=== PATIENT | female | born 1990 | race Caucasian/White ===

== ENCOUNTER 2020-05-15 14:10 | Emergency (ER) | payer OTHER ==
[~2020-05-15 14:10] MED LIST: AMOXICILLIN500 MG PO; ONDANSETRON ODT4 MG SL; SUDAFED30 MG PO; ZPAK PO
== END 2020-05-15 16:20 | disposition left against medical advice (07) ==
LOC: FER 14:10
DX: S31.154A Open bite of abdominal wall, left lower quadrant without penetration into peritoneal cavity, initial encounter (principal); F17.200 Nicotine dependence, unspecified, uncomplicated; W54.0XXA Bitten by dog, initial encounter; Y92.009 Unspecified place in unspecified non-institutional (private) residence as the place of occurrence of the external cause; Z53.8 Procedure and treatment not carried out for other reasons
CPT/HCPCS: 90471; 99283

== ENCOUNTER 2021-12-02 11:55 | Emergency (ER) | payer OTHER ==
[2021-12-02 12:51] LABS: BASOPHIL 0.8 % (0-2); BILIRUBIN NEGATIVE (NEGATIVE); BLOOD NEGATIVE Ery/uL (NEGATIVE); CLARITY CLEAR (CLEAR); COLOR YELLOW (YELLOW); EOSINOPHIL 1.6 % (0-5); GLUCOSE (U) NORMAL (NORMAL); HCT 40.3 % (37.0-47.0); LEUKOCYTES 1+ Leu/uL (NEGATIVE); LYMPHOCYTE 27.9 % (15-48); MCHC 34.7 g/dL (32.0-36.0); MCV 86.5 fL (78.0-100.0); MONOCYTE 5.9 % (0-12); MPV 10.3 fL (6.0-9.5); NEUTROPHIL 63.2 % (41-80); NITRITE NEGATIVE (NEGATIVE); NRBC 0; PLT 234 K/uL (150-400); PROTEIN NEGATIVE (NEGATIVE); RBC 4.66 M/uL (4.20-5.40); UROBILINOGEN 0.2 mg/dL (0.2-1.0); WBC 8.8 K/uL (4.0-10.5)
[2021-12-02 13:15] LABS: BACTERIA 1+; URINARY RBC RARE; URINARY WBC RARE
[2021-12-02 13:33] LABS: ALBUMIN 3.9 g/dL (3.4-5.0); BILIRUBIN - TOTAL 0.4 mg/dL (0.2-1.0); BUN/CREAT RATIO (CALC) 11.5 RATIO; CREATININE 0.61 mg/dL (0.51-0.95); POTASSIUM 3.8 mmol/L (3.5-5.1); TOTAL PROTEIN 6.9 g/dL (6.4-8.2)
== END 2021-12-02 16:15 | disposition home or self-care (01) ==
LOC: FER 11:55
PROVIDERS: Nurse Practitioner Family
DX: O99.891 Other specified diseases and conditions complicating pregnancy (principal); R10.84 Generalized abdominal pain; O99.611 Diseases of the digestive system complicating pregnancy, first trimester; K62.5 Hemorrhage of anus and rectum; O99.331 Smoking (tobacco) complicating pregnancy, first trimester; F17.210 Nicotine dependence, cigarettes, uncomplicated; Z3A.09 9 weeks gestation of pregnancy; Z28.310 Unvaccinated for COVID-19
CPT/HCPCS: 36415; 76817; 80053; 81001; 82270; 84702; 85025; 87088; J7030